=== PATIENT | male | born 1975 | race African-American/Black ===

== ENCOUNTER 2019-11-05 05:36 | Emergency (ER) | payer SELFPAY ==
[2019-11-05 05:54] VITALS: BP 163/94
[2019-11-05 07:41] LABS: ABSOLUTE LYMPHOCYTES (AUTO) 0.9 10^3/uL (0.5-4.7); ABSOLUTE MONOCYTES (AUTO) 0.5 10^3/uL (0.1-1.4); ABSOLUTE NEUT (AUTO) 4.2 10^3/uL (1.7-8.2); BASOPHILS % (AUTO) 0.5 % (0-2); EOSINOPHILS % (AUTO) 0.4 % (0-6); HEMATOCRIT 46.4 % (37.9-51.0); HEMOGLOBIN 15.9 g/dL (13.5-17.0); MEAN CORPUSCULAR HGB CONC 34.3 g/dL (32.0-36.0); MEAN CORPUSCULAR VOLUME 88 fl (80-97); MONOCYTES % (AUTO) 8.7 % (3-13); PLATELET COUNT 183 10^3/uL (150-450); SEGMENTED NEUTROPHILS % (AUTO) 74.4 % (42-78); TOTAL CELLS COUNTED % (AUTO) 100 %; WHITE BLOOD COUNT 5.6 10^3/uL (4.0-10.5)
[2019-11-05 07:59] LABS: ALBUMIN 4.5 g/dL (3.5-5.0); ALKALINE PHOSPHATASE 64 U/L (38-126); ANION GAP 7 (5-19); ASPARTATE AMINO TRANSFERASE 36 U/L (17-59); BILIRUBIN,TOTAL 0.5 mg/dL (0.2-1.3); BLOOD UREA NITROGEN 14 mg/dL (7-20); CALCIUM 9.1 mg/dL (8.4-10.2); CARBON DIOXIDE 27 mmol/L (22-30); CHLORIDE 104 mmol/L (98-107); GLUCOSE 126 mg/dL (75-110); POTASSIUM 3.7 mmol/L (3.6-5.0)
[2019-11-05 08:15] LABS: APPEARANCE,URINE CLEAR; BILIRUBIN,URINE NEGATIVE (NEGATIVE); COLOR,URINE YELLOW; GLUCOSE, URINE NEGATIVE (NEGATIVE); KETONES,URINE NEGATIVE (NEGATIVE); LEUKOCYTE ESTERASE,URINE NEGATIVE (NEGATIVE); NITRITE,URINE NEGATIVE (NEGATIVE); PROTEIN,URINE NEGATIVE (NEGATIVE); URINE SPECIFIC GRAVITY 1.017; UROBILINOGEN,URINE NEGATIVE mg/dL (<2.0)
[2019-11-05] MEDS ORDERED: KETOROLAC TROMETHAMINE INJ/PF 30 MG/1 ML SDV IV ONE (08:50)
[2019-11-05] MEDS ORDERED: ONDANSETRON HCL INJ/PF 4 MG/2 ML SDV IV ONE (08:50)
[2019-11-05] MEDS ORDERED: MORPHINE SULFATE 10 MG/ML INJ IV ONE (08:50)
--- NOTE | 2019-11-05 10:32 | RADIOLOGY REPORT (SQ) ---
EXAM DESCRIPTION: CT ABD/PELVIS NO ORAL OR IV IMAGES COMPLETED DATE/TIME: 11/05/2019 9:55 am REASON FOR STUDY: right flank pain COMPARISON: 08/18/2012 TECHNIQUE: CT scan of the abdomen and pelvis performed without intravenous or oral contrast. Images reviewed with lung, soft tissue, and bone windows. Reconstructed coronal and sagittal MPR images revi ewed. All images stored on PACS. All CT scanners at this facility use dose modulation, iterative reconstruction, and/or weight based d osing when appropriate to reduce radiation dose to as low as reasonably achievable (ALARA). [facility]: Dose Right [facility]: CareDose [facility]: Dose Right [facility]: Teradose 4D [facility]: Smart [employer] RADIATION DOSE: CT Rad equipment meets quality standard of care and radiation dose reduction techniq ues were employed. CTDIvol: 10.3 mGy. DLP: 580 mGy-cm.mGy. LIMITATIONS: None. FINDINGS: LOWER CHEST: There is a noncalcified 2.8 mm subpleural nodule in the right lower lobe. Th is is best demonstrated on series 4, image 6. There are 2 perifissural nodules on the left best demo nstrated on series 4 images 5. And 6. These are measured at 2.5 and 3.1 mm in size. No consolidatio n or effusions. NON-CONTRASTED LIVER, SPLEEN, ADRENALS: Evaluation limited by lack of IV contrast. No identified sign ificant masses. PANCREAS: No masses. No peripancreatic inflammatory changes. GALLBLADDER: No identified stones by CT criteria. No inflammatory changes to suggest cholecystitis. RIGHT KIDNEY AND URETER: There is right perinephric stranding. There is a 4.2 mm nonobstructing sto ne in the lower pole anteriorly. There is mild dilatation of the right renal pelvis an ureter. The re is a 5.5 mm stone in the bladder. Hounsfield units measure 424. LEFT KIDNEY AND URETER: No suspicious masses. Assessment limited by lack of IV contrast. No signifi cant calcifications. No hydronephrosis or hydroureter. AORTA AND RETROPERITONEUM: No aneurysm. No retroperitoneal masses or adenopathy. BOWEL AND PERITONEAL CAVITY: No obvious masses or inflammatory changes. No free fluid. APPENDIX: Normal. PELVIS, BLADDER, AND ABDOMINAL WALL:No abnormal masses. No free fluid. Bladder normal. BONES: No significant findings. OTHER: No other significant finding. IMPRESSION: Mild dilatation of the right collecting system an ureter with perinephric stranding. Th is is secondary to a 5.5 mm stone in close proximity to the right UVJ although more than likely this is passed into the bladder. Nonobstructing 4.2 mm stone in the lower pole the right kidney. COMMENT: Quality ID # [id number]: Final reports with documentation of one or more dose reduction techniques (e.g., Automated exposure control, adjustment of the mA and/or kV according to patient size, use of iterative reconstruction technique) TECHNICAL DOCUMENTATION: JOB ID: [id number] 2010 [employer]- All Rights Reserved Reading location - IP[facility]workstation name: [email or web address]
--- NOTE | 2019-11-05 10:48 | ER Document Report ---
ED General - General Chief Complaint: Possible Kidney Stone Stated Complaint: PAIN IN GROIN AREA Time Seen by Provider: 11/05/19 07:30 Mode of Arrival: Ambulatory Information source: Patient - HPI Notes: Patient complains of right flank pain. It started this morning. It is cons tant. It is severe. It is sharp. It radiates from the right lower abdomen to the right upper back. He states it feels like his previous kidney stone pain. He states it is severe. He states he has noticed some tingling in the end of his penis as well. Some mild dysuria. No blood. No fevers. - Related Data Allergies/Adverse Reactions: No Known Allergies Allergy (Unverified 08/18/12 23:07) Past Medical History - General Information source: Patient - Social History Smoking Status: Never Smoker Frequency of alcohol use: None Drug Abuse: None Family History: Reviewed & Not Pertinent Patient has homicidal ideation: No Review of Systems - Review of Systems Constitutional: denies: Chills, Fever Cardiovascular: denies: Chest pain, Palpitations Respiratory: denies: Cough, Short of breath -: Yes All other systems reviewed and negative Physical Exam - Vital signs Vitals: Temp Pulse Resp BP Pulse Ox 97.8 F 74 20 163/94 H 100 11/05/19 05:43 11/05/19 05:43 11/05/19 05:43 11/05/19 05:43 11/05/19 05:43 Interpretation: Hypertensive - General General appearance: Appears well, Alert - HEENT Head: Normocephalic, Atraumatic Eyes: Normal Pupils: PERRL - Respiratory Respiratory status: No respiratory distress Chest status: Nontender Breath sounds: Normal Chest palpation: Normal - Cardiovascular Rhythm: Regular Heart sounds: Normal auscultation Murmur: No - Abdominal Inspection: Normal Distension: No distension Bowel sounds: Normal Tenderness: Nontender Organomegaly: No organomegaly - Back Back: Normal, Nontender - Extremities General upper extremity: Normal inspection, Nontender, Normal color, Normal ROM, Normal temperature General lower extremity: Normal inspection, Nontender, Normal color, Normal ROM, Normal temperature, Normal weight bearing. No: Pasha's sign - Neurological Neuro grossly intact: Yes Cognition: Normal Orientation: AAOx4 [place] Coma Scale Eye Opening: Spontaneous [place] Coma Scale Verbal: Oriented [place] Coma Scale Motor: Obeys Commands [place] Coma Scale Total: 15 Speech: Normal Motor strength normal: LUE, RUE, LLE, RLE Sensory: Normal - Psychological Associated symptoms: Normal affect, Normal mood - Skin Skin Temperature: Warm Skin Moisture: Dry Skin Color: Normal Course - Re-evaluation Re-evalutation: 11/05/19 10:44 Patient presentation was consistent with kidney stone. CT scan shows a 5 mm kidney stone with some mild hydro-. It appears to have now passed into the bladder. On reexamination at 10:30 AM patient states he feels significantly better and is ready to be discharged. Patient did have a mildly elevated creatinine at 1.56. He states he does not have a primary care doctor. Therefore will refer him to the [place] [facility] as well as to urology. I have informed him that he needs to have his creatinine rechecked within the next week by a primary care physician. I have told him that if he is unable to do this then he should return the emergency department so that we can recheck his crea tinine. - Vital Signs Vital signs: Temp Pulse Resp BP Pulse Ox 97.8 F 74 20 163/94 H 100 11/05/19 05:43 11/05/19 05:43 11/05/19 05:43 11/05/19 05:43 11/05/19 05:43 - Laboratory Result Diagrams: 11/05/19 07:32 11/05/19 07:32 Laboratory results interpreted by me: 11/05/19 07:32 Creatinine 1.56 H Est GFR ( Amer) 59 L Est GFR (MDRD) Non-Af 48 L Glucose 126 H - Diagnostic Test Radiology reviewed: Image reviewed, Reports reviewed Discharge - Discharge Clinical Impression: Ureteral stone with hydronephrosis Condition: Stable Disposition: HOME, SELF-CARE Instructions: Kidney Stone ([facility] [place]) Additional Instructions: Please have our creatinine (a lab that measures kidney function) rechecked in the next week. If you are unable to have your primary doctor recheck your creatinine, then please return to the emergency department for a recheck. Prescriptions: Hydrocodone/Acetaminophen [[place] 5-325 mg Tablet] 1 tab PO Q6 PRN 3 Days #12 tablet PRN Reason: Forms: Return to Work Referrals: NASEEM SUTTON MD [NO LOCAL MD] - Follow up in 1 week
== END 2019-11-05 11:16 | disposition home or self-care (01) ==
LOC: ER 05:36
DX: N13.2 Hydronephrosis with renal and ureteral calculous obstruction (principal); R10.30 Lower abdominal pain, unspecified; M54.6 Pain in thoracic spine; R30.0 Dysuria
CPT/HCPCS: 99284; 96374; 96375; 36415; 83690; 85025; 80053; 81001; 74176; J1885; J2270; J2405